=== PATIENT | male | born 1970 | race Caucasian/White ===

== ENCOUNTER 2024-11-11 07:55 | Day surgery (SDC) | payer BC ==
[2024-11-11] MEDS ORDERED: fentaNYL 100 MCG/2 ML SDV ONE (07:57)
[2024-11-11] MEDS ORDERED: Propofol 200 MG/20 ML SDV ONE ×2 (07:57)
[2024-11-11] MEDS ORDERED: Midazolam 1 MG/ML 2 ML SDV ONE (07:57)
[2024-11-11] MEDS: Lactated Ringers 1,000 ML IV SCH (08:47)
== END 2024-11-11 11:16 | disposition home or self-care (01) ==
LOC: JP.SDS 07:55
PROVIDERS: ATTEND Surgery
DX: Z12.11 Encounter for screening for malignant neoplasm of colon (principal); K22.70 Barrett's esophagus without dysplasia; K63.5 Polyp of colon; K22.89 Other specified disease of esophagus; F17.200 Nicotine dependence, unspecified, uncomplicated
CPT/HCPCS: 00813; 43239; 45380; 88305; J2250; J2704; J3010; J7120